=== PATIENT | male | born 1970 | race Caucasian/White ===

== ENCOUNTER 2017-10-29 14:33 | Outpatient (RCR) | payer OTHER, SELFPAY ==
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
== END 2017-10-29 19:00 | disposition home or self-care (01) ==
LOC: OT 14:33
DX: F43.10 Post-traumatic stress disorder, unspecified (principal); M47.812 Spondylosis without myelopathy or radiculopathy, cervical region; M47.813 Spondylosis without myelopathy or radiculopathy, cervicothoracic region; M96.1 Postlaminectomy syndrome, not elsewhere classified; S00.03XD Contusion of scalp, subsequent encounter; S00.81XD Abrasion of other part of head, subsequent encounter; S06.0X0D Concussion without loss of consciousness, subsequent encounter; S13.4XXD Sprain of ligaments of cervical spine, subsequent encounter; S33.5XXD Sprain of ligaments of lumbar spine, subsequent encounter; S40.012D Contusion of left shoulder, subsequent encounter; S43.422D Sprain of left rotator cuff capsule, subsequent encounter; S43.432D Superior glenoid labrum lesion of left shoulder, subsequent encounter; S50.02XD Contusion of left elbow, subsequent encounter
CPT/HCPCS: 97165; 97166